=== PATIENT | female | born 1990 | race Caucasian/White ===

== ENCOUNTER 2025-01-17 10:00 | Emergency (ER) | payer OTHER, SELFPAY ==
[2025-01-17 10:06] VITALS: BP 112/81; PULSE 93; TEMP 36.6; O2SAT 99; BMI 26.6
[2025-01-17] MEDS: METHYLPREDNISOLONE SOD SUCC PF 125 MG/2 ML VIAL IM (10:33)
[2025-01-17] MEDS: FAMOTIDINE 20 MG TABLET PO (10:33)
--- NOTE | 2025-01-17 10:38 | ED.ALLEREA1 ---
HPI - Allergic Reaction General Chief complaint: Allergic Reaction Stated complaint: RASH ON BODY Time Seen by Provider: 01/17/25 10:18 Source: patient Mode of arrival: walk-in Limitations: no limitations History of Present Illness HPI narrative: The patient is coming to the ER with a rash that developed yesterday at 9 PM when she was almost going to sleep, patient woke up this morning to find that the rash is all over her body it is itching, she did not take anything [id number] for it and she did not remember that she ate some Chipotle new sauce yesterday that she did not try before The patient also mentioned that she recently finished her Flagyl after 7 days of intake after it was prescribed by her primary care Related Data Home Medications ?Medication ?Instructions ?Recorded ?Confirmed No Known Home Medications 01/17/25 01/17/25 Previous Rx's ?Medication ?Instructions ?Recorded diphenhydramine HCl 25 mg capsule 25 mg PO TID PRN allergic reaction 01/17/25 (Aler-Cap) #20 caps famotidine 20 mg tablet (Pepcid) 20 mg PO BID #10 tabs 01/17/25 prednisone 20 mg tablet 40 mg (2 x 20 mg) PO DAILY 5 days 01/17/25 #10 tabs Allergies Allergy/AdvReac Type Severity Reaction Status Date / Time morphine AdvReac Severe Nausea Verified 01/17/25 10:09 Review of Systems ROS Status of ROS 10 or more systems reviewed and unremarkable except as noted in history and below PFSH PFSH Social History Little interest or pleasure in doing things: not at all Feeling down, depressed, or hopeless: not at all Exam Narrative Exam Narrative: Nurses notes and vital signs reviewed and patient is not hypoxic. General: Well-appearing and in no apparent distress. Skin: The patient have a urticarial rash all over the body from head to toe Head: Normocephalic, atraumatic. Neck: Supple, non-tender. Eye: Pupils are equal, round and EOMI. No scleral icterus. Ears, Nose, Mouth, and Throat: TM are clear, no nasal mucosal hypertrophy. Oral mucosa is moist, no posterior oropharynx erythema, uvula is mid-line Cardiovascular: Regular Rate and Rhythm without murmur, gallop or rub. Respiratory: No accessory muscle use or respiratory distress. Lungs are clear to auscultation, no wheezing, rales or rhonchi Back: No midline thoracic or lumbar vertebral tenderness. No CVA tenderness GI: Abdomen is soft, non-distended. Normal bowel sounds. Constitutional Vital Signs, click to edit/add: Last Vital Signs Temp 97.9 F 01/17/25 10:06 Pulse 93 H 01/17/25 10:06 Resp 20 01/17/25 10:06 BP 112/81 01/17/25 10:06 Pulse Ox 99 01/17/25 10:06 O2 Del Method Room Air 01/17/25 10:06 Course Vital Signs Vital signs: Vital Signs Temperature 97.9 F 01/17/25 10:06 Pulse Rate 93 H 01/17/25 10:06 Respiratory Rate 20 01/17/25 10:06 Blood Pressure 112/81 01/17/25 10:06 Pulse Oximetry 99 01/17/25 10:06 Oxygen Delivery Method Room Air 01/17/25 10:06 Temperature 97.9 F 01/17/25 10:06 Pulse Rate 93 H 01/17/25 10:06 Respiratory Rate 20 01/17/25 10:06 Blood Pressure 112/81 01/17/25 10:06 Pulse Oximetry 99 01/17/25 10:06 Oxygen Delivery Method Room Air 01/17/25 10:06 MDM - Allergic Reaction MDM Narrative Medical decision making narrative: The patient urticaria is mostly secondary to food allergy and she was instructed about avoiding any allergen There was no alarming symptoms no difficulty breathing or any tongue swelling and the rash started yesterday night at 9 PM The patient drove herself over here and she was provided with Solu-Medrol IM as well as Pepcid and instructed about using Benadryl every 8 hours at least for the next 2 days for improvement The patient was not given the Benadryl in the ER because she drove herself over here and she will be driving to the pharmacy to pickle solution maker her medication and then go home and take it Patient provided with work excuse for the next 3 days to make sure that she will have her symptoms improved before she goes back to work The patient to come back to the ER in case of any worsening of her symptoms The patient is to follow up with primary care physician in next 2-3 days or to return to the emergency department should any of the signs or symptoms worsen or new symptoms develop. The patient agrees with the following Diagnosis and Treatment plan and the patient will be discharged home. Discharge Plan Discharge Chief Complaint: Allergic Reaction Clinical Impression: Allergic reaction Patient Disposition: Home, Self-Care Time of Disposition Decision: 10:21 Condition: Good Prescriptions / Home Meds: New diphenhydramine HCl [Aler-Cap] 25 mg capsule 25 mg PO TID PRN (Reason: allergic reaction) Qty: 20 0RF prednisone 20 mg tablet 40 mg PO DAILY 5 Days Qty: 10 0RF famotidine [Pepcid] 20 mg tablet 20 mg PO BID Qty: 10 0RF No Action No Known Home Medications Print Language: [place] Instructions: Urticaria (ED) Referrals: Laura Mayberry NP [Primary Care Provider] - 1 week
== END 2025-01-17 11:09 | disposition home or self-care (01) ==
PROVIDERS: Emergency Provider Emergency Medicine; PCP Nurse Practitioner
DX: T78.1XXA Other adverse food reactions, not elsewhere classified, initial encounter (principal); L27.2 Dermatitis due to ingested food
CPT/HCPCS: 96372; 99284; J2919